=== PATIENT | male | born 2000 | race Caucasian/White ===

== ENCOUNTER 2021-01-05 06:00 | Outpatient (RCR) | payer OTHER, SELFPAY | END 2021-01-17 23:59 | disposition home or self-care (01) | LOC: TPT 06:00 | PROVIDERS: Referring Provider Orthopaedic Surgery; Visit Provider Orthopaedic Surgery | DX: M22.2X2 Patellofemoral disorders, left knee (principal) | CPT/HCPCS: 97110; 97140; 97162 ==

== ENCOUNTER 2021-04-08 06:00 | Outpatient (RCR) | payer OTHER, SELFPAY | END 2021-04-19 23:59 | disposition home or self-care (01) | LOC: TPT 06:00 | PROVIDERS: PCP Orthopaedic Surgery; Referring Provider Orthopaedic Surgery; Visit Provider Orthopaedic Surgery | DX: M22.2X2 Patellofemoral disorders, left knee (principal) | CPT/HCPCS: 97110; 97162 ==

== ENCOUNTER 2021-04-20 06:00 | Outpatient (RCR) | payer OTHER, SELFPAY | END 2021-05-17 23:59 | disposition home or self-care (01) | LOC: TPT 06:00 | PROVIDERS: PCP Orthopaedic Surgery; Referring Provider Orthopaedic Surgery; Visit Provider Orthopaedic Surgery | DX: M22.2X2 Patellofemoral disorders, left knee (principal) | CPT/HCPCS: 97032; 97110; 97164 ==

== ENCOUNTER 2021-06-23 06:00 | Outpatient (RCR) | payer OTHER, SELFPAY | END 2021-07-07 23:59 | disposition home or self-care (01) | LOC: TPT 06:00 | PROVIDERS: PCP Orthopaedic Surgery; Referring Provider Orthopaedic Surgery; Visit Provider Orthopaedic Surgery | DX: Z51.89 Encounter for other specified aftercare (principal) | CPT/HCPCS: 97110; 97163 ==

== ENCOUNTER 2022-07-06 13:06 | Emergency (ER) | payer SELFPAY ==
[2022-07-06 13:18] VITALS: BP 131/81; PULSE 60; TEMP 36.6; O2SAT 98; BMI 36.5
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
[2022-07-06 14:29] LABS: Bilirubin Urine Neg (Negative); Blood Urine Neg (Negative); Glucose Urine UA Norm (Normal); Ketones Urine Negative (Negative); Leukocyte Esterase Urine Negative (Negative); Nitrate Urine Negative (Negative); Protein Urine Trace (Negative); Specific Gravity, Urine 1.015 (1.005-1.030); Urine Appearance Clear (CLEAR); Urine Color Yellow (Yellow); Urobilinogen Urine 4 mg/dL (Negative); pH Urine 7 (5-7)
[2022-07-06 14:30] LABS: Add Urine Microscopic? YES; Amorphous Sediment Urine TRACE /hpf; Bacteria Urine TRACE /hpf; Calcium Oxalate Crystals Urine RARE /hpf; Mucus Urine 2+ /hpf; RBC Urine 0-4 /hpf (0-2); Squamous Epithelial Cell Urine 0-4 /hpf (0-5)
[2022-07-06 14:32] LABS: Add Urine Culture? No
[2022-07-06] MEDS: tetanus-dipt-pertussis 0.5 mL SDV IM (15:06)
[2022-07-06 15:42] VITALS: BP 127/67; PULSE 63; O2SAT 99
[2022-07-06 15:49] VITALS: BP 127/67
== END 2022-07-06 15:52 | disposition home or self-care (01) ==
PROVIDERS: Emergency Provider Emergency Medicine; PCP Orthopaedic Surgery
DX: M25.562 Pain in left knee (principal); M54.2 Cervicalgia; V48.5XXA Car driver injured in noncollision transport accident in traffic accident, initial encounter; Z23 Encounter for immunization
CPT/HCPCS: 70450; 72125; 73562; 81001; 90471; 90715; 99285

== ENCOUNTER → 2024-07-19 08:54 | Outpatient (BNVA) | payer BC, MEDICAID, SELFPAY | PROVIDERS: PCP Orthopaedic Surgery; Visit Provider Nurse Practitioner Family | DX: M54.9 Dorsalgia, unspecified (principal) | CPT/HCPCS: 72110 ==

== ENCOUNTER 2024-07-28 12:35 | Emergency (ER) | payer BC, MEDICAID, SELFPAY ==
[2024-07-28 12:59] VITALS: BP 143/74; PULSE 77; TEMP 36.8; O2SAT 99; BMI 36.5
--- NOTE | 2024-07-28 14:14 | W.ED.BACK ---
HPI - Back Pain/Injury General: Chief Complaint: Back Pain/Injury Stated Complaint: back pain Time Seen by Provider: 07/28/24 13:01 Source: patient Mode of arrival: ambulatory Limitations: no limitations History of Present Illness: 24-year-old male has chronic back pain states that he sees pain management states has not been able to work today because he has pain. States his pain is similar to has always been his right lower back denies any midline pain denies any leg weakness or bowel incontinence Associated symptoms: Deny abdominal pain, chills, fever(s), nausea or vomiting Related Data Previous Rx's ?Medication ?Instructions ?Recorded cyclobenzaprine 10 mg tablet 10 mg PO TID PRN muscle spasm #90 02/13/23 tabs diclofenac sodium 1 % topical gel 2 g topical QID PRN back pain #100 07/19/24 (Voltaren Arthritis Pain) grams diclofenac sodium 25 mg 25 mg PO BID #60 tabs 07/24/24 tablet,delayed release Allergies Allergy/AdvReac Type Severity Reaction Status Date / Time nickel Allergy Unknown Verified 07/28/24 13:04 Review of Systems Const: Denies: fever(s), chills, body aches or change in appetite ENMT: Denies: throat pain or dental pain Card: Denies: chest pain Resp: Denies: dyspnea GI: Denies: abdominal pain, nausea, vomiting or diarrhea Musc: Reports: back pain; Denies: neck pain Skin/Breast: Denies: rash Neuro: Denies: headache(s) PFSH ED PFSH: Social History Smoking and tobacco/nicotine status: never used tobacco/nicotine Physical Exam Const: COMMON NORMALS: no acute distress, patient oriented x3 and healthy appearing HENMT: COMMON NORMALS: normocephalic and atraumatic HEAD & SCALP: normocephalic and atraumatic Eye: COMMON NORMALS: conjunctivae normal CONJUNCTIVA: Yes conjunctivae normal Neck/C-Spine: COMMON NORMALS: full ROM and supple Chest: COMMONS NORMALS: normal inspection of the chest Resp: COMMON NORMALS: normal respiratory effort Cardio: COMMON NORMALS: regular rate RATE: regular rate Back/Pelvis: OTHER: right lower back tenderness Extremity: COMMON NORMALS: normal to inspection and full ROM Neuro: COMMON NORMALS: patient oriented x3, moves all extremities and no focal motor deficits Psych: COMMON NORMALS: mental status grossly normal, Normal thought process present and cooperative THOUGHT PROCESS: Normal thought process present Skin: COMMON NORMALS: no rashes or lesions noted and no wounds GENERAL SKIN EXAM: no rashes or lesions noted Course Vital Signs: Vital signs: Vital Signs Temperature 98.2 F 07/28/24 12:59 Pulse Rate 77 07/28/24 12:59 Blood Pressure 143/74 07/28/24 12:59 Pulse Oximetry 99 07/28/24 12:59 Oxygen Delivery Me thod Room Air 07/28/24 12:59 MDM - Back Pain/Injury Medical Decision Making Patient presents for low back pain is chronic in nature he is well-appearing here stable for discharge follow-up PCP return if worsening Medical Records I reviewed the patient's medical records. No radiology studies performed this visit Discharge Plan Discharge Patient Disposition: Home Clinical Impression: Chronic lumbar pain Qualifiers: Back pain laterality: bilateral Sciatica presence: without sciatica Qualified Code(s): M54.50 - Low back pain, unspecified Condition: Stable Prescriptions: No Action cyclobenzaprine 10 mg tablet 10 mg PO TID PRN (Reason: muscle spasm) Qty: 90 0RF diclofenac sodium [Voltaren Arthritis Pain] 1 % gel 2 g topical QID PRN (Reason: back pain) Qty: 100 0RF Rx Instructions: apply to single elbow, wrist or hand; for hand includes palm/fingers/back of hand diclofenac sodium 25 mg tablet,delayed release (DR/EC) 25 mg PO BID Qty: 60 0RF Discharge Orders: Discharge ED (Routine); Ordered 07/28/24 Ordered By: Rehan Hidalgo Referrals: Manuel Burns MD [Primary Care Provider, Physical Therapy] - 4-7 days Discharge Diet: Advance as tolerated Discharge Activity: Resume usual activity Patient Instructions: Chronic Back Pain (DC), Back Pain (ED) Stand Alone Forms: Work/School Release Print Language: Kuwaiti Coding Level of Care Code ED Pearl Peller for Savannah Phillips
[2024-07-28 14:22] VITALS: BP 128/61; PULSE 80; O2SAT 97
== END 2024-07-28 14:23 | disposition home or self-care (01) ==
PROVIDERS: Emergency Provider Emergency Medicine; PCP Orthopaedic Surgery
DX: M54.50 Low back pain, unspecified (principal)
CPT/HCPCS: 99281

== ENCOUNTER 2024-09-24 15:51 | Outpatient (CLI) | payer BC, MEDICAID, SELFPAY ==
--- NOTE | 2024-09-24 15:15 | MR_ITS ---
WS: [id number] MRI LUMBAR SPINE WITH CONTRAST TECHNIQUE: Sagittal T1, T2 and STIR imaging. Axial T1 and T2 imaging. Post gadolinium imaging was obtained. CLINICAL INFORMATION: M54.16 - Radiculopathy, lumbar region COMPARISON: None. FINDINGS: Some images degraded by motion. Mild lumbar curve. No acute compression. No high-grade central canal stenosis. No abnormal gadolinium enhancement. L1-L2: Normal. L2-L3: Mild facet arthropathy. L3-L4: Tiny RIGHT foraminal protrusion with slight contact of the proximal exiting RIGHT L3 nerve root. Spinal canal and LEFT foramen are patent. Mild facet arthropathy. L4-L5: Mild annular bulging. Mild facet arthropathy. Mild RIGHT greater than LEFT foraminal narrowing. L5-S1: Mild annular bulging. Moderate facet arthropathy. Spinal canal and foramen are patent. Visualized pelvic bony structures: Normal. Paravertebral soft tissues: Normal. MR/MR lumbar spine wo/w con [id number] IMPRESSION: 1. Mild lumbar curve. No acute compression. No high-grade central canal stenos is. 2. Tiny RIGHT proximal foraminal protrusion slightly contacts the proximal exi ting RIGHT L3 nerve root. Recommend correlation RIGHT L3 nerve root symptoms. 3. Mild bilateral L4-5 foraminal narrowing RIGHT greater than LEFT. 4. Mild facet arthropathy L3-L4 and L4-L5. Moderate facet arthropathy L5-S1. 5. Minimal facet effusions L4-L5 and L5-S1.
[2024-09-24] MEDS: gadobenate dimeglumine 20 mL vial IV (16:41)
== END 2024-09-24 15:52 | disposition home or self-care (01) ==
LOC: RAD 15:51
PROVIDERS: PCP Orthopaedic Surgery; Visit Provider Nurse Practitioner Family
DX: M54.16 Radiculopathy, lumbar region (principal); M48.061 Spinal stenosis, lumbar region without neurogenic claudication; M47.816 Spondylosis without myelopathy or radiculopathy, lumbar region; M47.817 Spondylosis without myelopathy or radiculopathy, lumbosacral region
CPT/HCPCS: 72158

== ENCOUNTER → 2024-10-08 17:59 | Outpatient (BNVA) | payer BC, MEDICAID, SELFPAY | PROVIDERS: PCP Orthopaedic Surgery; Visit Provider Family Medicine | DX: R22.41 Localized swelling, mass and lump, right lower limb (principal) | CPT/HCPCS: 73610 ==